=== PATIENT | male | born 1950 | race Hispanic/Latino ===

== ENCOUNTER 2022-07-28 14:08 | Emergency (ER) | payer SELFPAY ==
[2022-07-28] MEDS ORDERED: Hydrogen Peroxide 3% Top Soln 473 ML Bottle TOP ONE (14:09)
[2022-07-28] MEDS ORDERED: Sodium Chloride 0.9% 1,000 ML IV ONE (14:30)
[2022-07-28] MEDS ORDERED: Diphtheria,Pertussis(Acell),Tetanus Vaccine 0.5 ML Syringe IM ONE (14:32)
[2022-07-28] MEDS ORDERED: Morphine 4 MG/ML Syringe IVPUSH ONE (14:33)
[2022-07-28] MEDS ORDERED: ceFAZolin 2 GM in Sodium Chloride 0.9% 50 ML IV ONE (14:33)
[2022-07-28] MEDS ORDERED: Ondansetron 4 MG/2 ML SDV IVPUSH ONE (14:33)
[2022-07-28 15:08] LABS: BLOOD UREA NITROGEN,BUN 21 mg/dL (7.0-18.0); CARBON DIOXIDE,CO2 25.3 mmol/L (21.0-32.0); CHLORIDE,CL 103 mmol/L (98-107); GLUCOSE RANDOM 108 mg/dL (74-106); POTASSIUM,K 3.8 mmol/L (3.5-5.1); SODIUM,NA 140 mmol/L (136-148)
[2022-07-28 15:12] LABS: ESTIMATED GFR 46 mL/min (>60)
[2022-07-28] MEDS ORDERED: Lidocaine/Epineph/Tetracaine 3 ML Syringe TOP ONE (15:18)
[2022-07-28] MEDS ORDERED: Iopamidol 755 MG/ML 500 ML Multipack Bottle IVPUSH ONE (16:12)
== END 2022-07-28 17:41 | disposition home or self-care (01) ==
LOC: MW.ED 14:08
DX: S01.81XA Laceration without foreign body of other part of head, initial encounter (principal); J91.8 Pleural effusion in other conditions classified elsewhere; Z79.899 Other long term (current) drug therapy; Z23 Encounter for immunization; W11.XXXA Fall on and from ladder, initial encounter
CPT/HCPCS: 12001; 12015; 36415; 70450; 70486; 71260; 72125; 72128; 72131; 73080; 73130; 74177; 80053; 80307; 83735; 84484; 85025; 85610; 85730; 90471; 90715; 93005; 96361; 96365; 96375; 99284; J0690; J2270; J2405; J3490; J7030; Q9967